=== PATIENT | male | born 1960 | race Caucasian/White ===

== ENCOUNTER 2016-12-19 15:42 | Inpatient (IN) ==
[2016-12-19] MEDS ORDERED: DUONEB (A & A) INH ONE ×2 (16:36→18:34)
[2016-12-19] MEDS ORDERED: SOLU-MEDROL IV ONE (16:37)
--- NOTE | 2016-12-19 16:43 | PROVIDER DOCUMENTATION ---
HPI-General Adult - General Chief Complaint: Cough Stated Complaint: COUGH/CONGESTION Time Seen by Provider: 12/19/16 16:25 Source: patient Allergies/Adverse Reactions: Patient Allergies Allergy/AdvReac Type Severity Reaction Status Date / Time No Known Allergies Allergy Verified 08/23/14 21:20 Home Medications: Home Medication List Medication Instructions Recorded Confirmed Last Taken Type Alprazolam [Xanax] 3 mg PO QAM 03/18/12 08/26/14 08/25/14 07:00 History Sertraline HCl [Zoloft] 2 tab PO QAM 03/18/12 08/26/14 08/25/14 07:00 History Amlodipine Besylate [Norvasc] 5 mg PO BID 03/19/12 08/26/14 08/26/14 04:10 History Metoprolol Succinate 100 mg PO DAILY 03/19/12 08/26/14 08/26/14 04:10 History Ciprofloxacin HCl [Cipro] 500 mg PO BID #20 tablet 08/23/14 08/26/14 08/25/14 20 :00 Rx Metronidazole [Flagyl] 500 mg PO TID #15 tablet 08/23/14 08/26/14 08/25/14 20: 00 Rx Phenazopyridine HCl [Pyridium] 97.5 mg PO TID 08/25/14 08/26/14 08/25/14 20:00 History Albuterol Sulfate [Albuterol 8.5 gm IH Q6H #1 hfa.aer.ad 12/19/16 Unknown Rx Sulfate Hfa] Azithromycin [Zithromax Z-Jamel] 250 mg PO DIRECTED #1 pkg 12/19/16 Unknown Rx Guaifenesin 400 mg PO BID #10 tablet 12/19/16 Unknown Rx Prednisone 40 mg PO DAILY #3 tablet 12/19/16 Unknown Rx - History of Present Illness -Gen Adult Nature of Presenting Problems: Pt comes in from PCP with complaint of cough with dark green sputum and SOB with exertion. He started having diarrhea 3 days ago [place] His grand kids also had diarrhea. He smokes but denies COPD Review of Systems - Adult - REVIEW OF SYSTEMS - ADULT Constitutional: reports: see HPI, chills, fever. denies: fatique, night sweats , weight gain, weight loss Eyes: reports: no symptoms reported. denies: discharge, dry eyes, decreased vision, blurred vision, double vision, redness Ears, Nose, Mouth & Throat: reports: no symptoms reported. denies: ear discharge, ear pain, hearing loss, epistaxis, loose teeth, mouth/dental pain, mouth swelling, hoarseness, throat pain, throat swelling Cardiovascular: reports: no symptoms reported. denies: chest pain, edema, heart murmur, irregular heart rate, palpitations, poor circulation, PND, syncope Respiratory: reports: see HPI, cough, dyspnea on exertion, shortness of breath. denies: excessive sputum production, hemoptysis, pleurisy, wheezing Gastrointestinal: reports: see HPI, diarrhea. denies: abdominal pain, hematemesis, constipation, frequent heartburn, nausea, poor appetite, rectal bleeding, vomiting Genitourinary: reports: no symptoms reported. denies: dysuria, discharge, frequency, flank pain, frequent UTI's, hesitency, incontinence, urinary retention, urgency Musculoskeletal: reports: no symptoms reported. denies: bone pain, back pain, frequent leg cramps, joint pain, joint swelling, muscle aches, muscle weakness, neck pain Integumentary: reports: no symptoms reported. denies: hives, hair loss, mole changes, nail changes, rash, skin sores/ulcer, skin thickening Neurological: reports: no symptoms reported. denies: ataxia, dizziness/vertigo , loss of balance, numbness, paresthesia, seizure, syncope, tremors Psychiatric: reports: no symptoms reported. denies: anxiety, anti-depressant use, alcohol/drug dependence, emotional problems, insomnia, panic attacks, suicidal thoughts Endocrine: reports: no symptoms reported. denies: change in skin pigment, goiter, cold intolerance, increased hunger, increased thirst, polyuria Hematologic/Lymphatic: reports: no symptoms reported. denies: blood clots, low blood count, lymphedema, prolonged bleeding, transfusions Allergic/Immunologic: reports: no symptoms reported. denies: allergic reactions , allergic rhinitis, asthma, eczema, frequent infections, hay fever, positive PPD, urticaria All Other Systems: Reviewed and Negative Past History - Adult - PAST MEDICAL HISTORY-ADULT Review of Records: reports: Old Records Reviewed, Nursing Assessment Review, Medications Reviewed, Social history reviewed & non-contributory. Major Childhood Illnesses: reports: denies history Cardiovascular: reports: HTN Respiratory: reports: sleep apnea Gastrointestinal: reports: denies history Obstetrical/Gynecological: reports: denies history Genitourinary: reports: kidney stones, prostate cancer Musculoskeletal: reports: denies history Neurological: reports: denies history Endocrine/Immune: reports: denies history Other Conditions: reports: denies history - PRIOR SURGERIES/PROCEDURES Surgical/Procedure History: reports: reviewed, not pertinent, other (prostate) - IMMUNIZATION STATUS Childhood Immunizations: See Nurse Assessment Flu Vaccine: See Nurse Assessment - FAMILY HISTORY Family History: reviewed, not pertinent - SOCIAL HISTORY Smoking: cigarettes, less than 1 pack/day Provider spent 3-5 mins advising pt. on dangers of tobacco.: Discussed manners to quit use, and f/u contacts for add'l counseling. Substance Use: none/never Alcohol Use Frequency: never Living Situation: family Physical Exam-General - PHYSICAL EXAM-ADULT Initial Vital Signs Reviewed: Yes - CONSTITUTIONAL General Appearance: appears well, alert, no apparent distress - EYES Eyes: PERRL/EOMI, pink conjunctivae - HEAD, EARS, NOSE, MOUTH & THROAT HENMT: normocephalic/atraumatic - NECK Neck: non-tender, full range of motion, supple - RESPIRATORY Respiratory: chest non-tender, no pleuratic chest pain, no respiratory distress , no accessory muscle use, decreased breath sounds, rhonchi, wheezing - CARDIOVASCULAR Cardiovascular: normal peripheral pulses, regular rate, rhythm, no edema, no gallop, no JVD, no murmur - GASTROINTESTINAL (ABDOMEN) Abdominal Exam: normal bowel sounds, non tender, soft - MUSCULOSKELETAL Back Exam: normal inspection, no CVA tenderness Extremity: normal range of motion, non-tender, normal gait, normal inspection, no pedal edema, no calf tenderness, normal capillary refill - SKIN Integumentary: normal color, normal turgor, warm/dry - NEUROLOGIC Neurologic: professor of communication arts II-XII nml as tested, grossly normal - PSYCHIATRIC Psych/Mental Status: normal mood/affect, normal thought content, normal thought process, oriented x 3 Progress - PLAN OF CARE/RESULTS Progress/Plan/Lab Results: Vital Signs - 8 hr 12/19/16 15:45 Temperature 98.7 F Pulse Rate 92 H Respiratory Rate 18 Blood Pressure 121/72 O2 Sat by Pulse Oximetry 93 L Orders Category Date Time Status CHEST-2 VIEWS [RAD] Stat Exams 12/19/16 16:36 Ordered ABG [RESP] Stat Lab 12/19/16 16:36 Ordered CBC WITH DIFF [HEME] Stat Lab 12/19/16 16:36 Uncollected CMP [COMPREHENSIVE METABOLIC PANEL] [CHEM] Stat Lab 12/19/16 16:36 Uncollected Albuterol 2.5MG/Ipratrop 0.5MG [Duoneb (A & A)] Med 12/19/16 16:36 Once 3 ml INH NOW ONE Methylprednisolone Sod Succ [Solu-Medrol] Med 12/19/16 16:37 Once 125 mg IV NOW ONE Aerosol Treatments Routine Oth 12/19/16 16:36 Ordered Aerosol Treatments Stat Oth 12/19/16 16:36 Ordered Result Diagrams: 12/19/16 17:17 12/19/16 17:17 - XRAY 1 XRAY Study: Chest Impression: See EMR Report XRAY Interpretation: right sided fibrosis (RAD) Departure - Departure Date of Disposition Decision: 12/19/16 Time of Disposition Decision: 18:12 DIAGNOSIS: URI (upper respiratory infection) Qualifiers: URI type: unspecified URI Qualified Code(s): J06.9 - Acute upper respiratory infection, unspecified Disposition: HOME 01 Certified Medical Emergency: Emergent Condition: Good Additional Freetext Instructions: ED Follow Up Instructions: You have been treated by a care provider in the Emergency Department. These instructions are being provided to you so you can have an understanding of how to care for yourself upon discharge. Upon discharge from the Emergency Department, you are responsible for making arrangements for follow-up care by a physician of your choice. Take all prescribed medications as directed. Return to the Emergency Department immediately for any new or worsening symptoms. You may call the Physician Referral phone number at [phone] to obtain a list of Physicians who are taking new patients. Prescriptions: Albuterol Sulfate [Albuterol Sulfate Hfa] 8.5 gm IH Q6H #1 hfa.aer.ad Azithromycin [Zithromax Z-Jamel] 250 mg PO DIRECTED #1 pkg Guaifenesin 400 mg PO BID #10 tablet Prednisone 40 mg PO DAILY #3 tablet Referrals and Follow-Ups: Socrates Canales MD [Primary Care Provider] - - Critical Care Note This patient required my direct & personal management of CC.: No Attestation - Physician/ JACQUELINE Attestation Patient care was provided by Advanced Practice Provider:: Yes Advanced Practice Provider:: Champ Funk Advanced Practice Provider documentation review:: The Mid-level provider documentation, treatment plan and medical decision making was reviewed by the physician who agrees with all treatment and medical decision making by the MLP.
[2016-12-19 16:51] LABS: ALLEN TEST YES; BE 0.7 mmoll (-3.0-3.0); BLOOD TYPE ARTERIAL; DRAW SITE R RADIAL; METHB 1.1 % (0.0-1.5); O2(CT) 23.4 mL/dL (15.0-23.0); PCO2(98.6) 40 mmHg (35-45); PO2(98.6) 66 mmHg (60-100); SAMPLE BLOOD; SAO2 95.6 % (95.0-100.0); THB 18.2 g/dL (11.5-17.4); pH(98.6) 7.41 (7.35-7.45)
[2016-12-19 16:54] LABS: MODALITY CANNULA
--- NOTE | 2016-12-19 17:30 | Diag Imaging Result Doc PS360 ---
EXAM: CHEST-2 VIEWS HISTORY: cough TECHNIQUE: PA and lateral COMMENT: There is no evidence of acute cardiac or pulmonary disease. There is some pleural fibrosis particularly laterally on the right. Compared to 10/31/2016 there is been no significant change. IMPRESSION: Stable chest. Electronically signed by Diego Lipscomb 12/19/2016 5:28 PM
[2016-12-19 17:34] LABS: MANUAL DIFF NEEDED? NO
[2016-12-19 17:39] LABS: BASO% 0.6 % (0.0-0.8); EOS# 0.06 X1000 (0.0-0.7); EOS% 1.3 % (0.0-10.0); HEMATOCRIT 55.2 % (42.0-52.0); HEMOGLOBIN 18.3 g/dL (14.0-18.0); LYMPH# 0.89 X1000 (1.2-3.4); LYMPH% 19.3 % (20.5-51.1); MCH 32.2 PG (27-31); MCHC 33.2 g/dL (33-37); MCV 97.2 FL (81-99); MONO# 0.49 X1000 (0.11-0.59); MONO% 10.6 % (1.7-9.3); MPV 10.5 FL (7.4-10.4); NEUT% 68.2 % (42.2-75.2); PLT 142 X1000 (130-400); RBC 5.68 XMIL (4.7-6.1)
[2016-12-19 17:57] LABS: AGAP 13; ALBUMIN 4.5 g/dL (3.5-5.0); ALKALINE PHOSPHATASE 97 U/L (32-122); BUN 15 mg/dL (8-22); CALCIUM 9.4 mg/dL (8.8-10.2); CHLORIDE 97 mmol/L (98-107); COSMO 276; GOT 24 U/L (10-34); GPT 29 U/L (10-44); POTASSIUM 4.1 mmol/L (3.5-5.1); SODIUM 138 mmol/L (136-145); TCO2 28 mmol/L (25-35); TOTAL BILIRUBIN 0.44 mg/dL (0.20-1.00)
[2016-12-19] MEDS ORDERED: BIDEX PO ONE (18:11)
[2016-12-19] MEDS ORDERED: NS 1,000 ML IV ONE (18:11)
--- NOTE | 2016-12-19 20:15 | Diag Imaging Result Doc PS360 ---
EXAM: CT THORAX W/O CONTRAST HISTORY: quantify fibrosis TECHNIQUE: CT of the chest without contrast with dose reduction (clarity) COMMENT: Compared to the previous study of 07/14/2013 some of the tree-in-bud opacities which were previously present in the left upper and lower lobes as well as in the right lower lobe and anterior inferior right upper lobe have diminished considerably. There is some scarring in the lingula. There is atelectasis or fibrosis in the medial portion of the right upper lobe just above the minor fissure. Some groundglass opacity is seen in the right lower lobe just posterior to the major fissure around image 89. This was not present previously. 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 There is extensive coronary calcification. There are no abnormal fluid collections. The mediastinum has not changed significantly in appearance since the previous study. IMPRESSION: The pulmonary opacities present on 07/14/2013 are largely resolved however there are some new abnormalities as described above which may indicate minimal pneumonitis. Other chronic changes as described above. Electronically signed by Diego Lipscomb 12/19/2016 8:13 PM
--- NOTE | 2016-12-19 21:07 | HISTORY AND PHYSICAL ---
REASON FOR ADMISSION: Nine days' history of worsening shortness of breath and cough. HISTORY OF PRESENT ILLNESS: Mr. Monahan is a 56-year-old man with a past medical history of pulmonary fibrosis, confined to his right lung, coronary artery disease, dyslipidemia, hypertension, kidney stones, who comes in today complaining of about a 9-day history of progressively worsening shortness of breath, which occurred after his trip to the [facility]. He reports that other family members developed upper respiratory illnesses like he did, and most of them have recovered, but he has continued to carry this cough, which is productive of sometimes brownish sputum, but no hemoptysis. He reports that unlike the other family members, he has continued to have progressive worsening shortness of breath, positive PND, but no orthopnea, no chest pain. No lightheadedness. He said his exercise tolerance over the last 3 days has significantly decreased. He however denies any leg swelling. He admits to having some subjective fevers intermittently over the last 3 days. His breathing got to the point where even at rest or very light duty, he became profoundly dyspneic, and it took him a long time to recover each time he did very light work duties. On arrival to the ER, his O2 saturation on room air was in the mid 80s. He was given multiple breathing treatments, and he says subjectively he feels better. His O2 saturations have still been in the 80s. He reports intermittent palpitations when his breathing gets worse over the last 2 days. REVIEW OF SYSTEMS: Only notable for a 2-day history of nonbloody diarrhea, which is resolving, and chronic urinary urgency following his prostatectomy 7 years ago. He denies any dysuria or hematuria anyway. Review of systems otherwise, a 12-system review is negative, except for positive findings noted in the HPI. ALLERGIES: None. MEDICATIONS: 1. Remeron 30 mg daily. 2. Xanax 2 mg daily. 3. Toprol 100 mg daily. 4. Remeron 30 mg as directed. 5. Crestor 10 mg daily. 6. Entresto 24/26 mg daily. 7. Zoloft 200 mg in the morning. PAST MEDICAL HISTORY: See above. PAST SURGICAL HISTORY: He has had right shoulder surgery, total prostatectomy in 2007. FAMILY HISTORY: Notable for heart disease, type 2 diabetes, lymphoma in first-degree relatives. SOCIAL HISTORY: Lives alone. Smokes half a pack a day. No alcohol or illicit drug use. LABORATORY WORK: Notable for white count of 4000, hemoglobin and hematocrit of 18 and 55, platelets 142,000. Chemistry entirely is normal. Blood gas 7.41, pCO2 40, PO2 66 on [address] of the chest: Showed pulmonary opacities that were present in 2013 had resolved, but there is report of new abnormalities, which indicates minimal pneumonitis. They also noted some scarring in the lingula, and some fibrosis in the medial portion of the right upper lobe. His lactate was also normal. PHYSICAL EXAMINATION: VITAL SIGNS: Blood pressure 121/80, heart rate 93, respirations 16, temperature is 97.8 degrees. He was 91% on 2 L. GENERAL: He is a pleasant middle-aged overweight man, who is not in acute distress. He is A and O x3. Normal mood and affect. HEENT: Head is normocephalic, atraumatic. Eyes GRADY, EOMI. He is anicteric and not pale. ENT and oropharynx exam is grossly normal. No signs of cyanosis is noted. No JVD. No bruit. No thyromegaly noted. CHEST: Decreased air entry in both lung chan, with diffuse wheezes. CARDIOVASCULAR: First and second heart sounds heard. No gallops, murmurs, rubs. Rhythm is regular. ABDOMEN: Protuberant, soft, nontender. No mass or organomegaly. Bowel sounds are hyperactive. RECTAL: Deferred at this time. EXTREMITIES: No edema, clubbing, or cyanosis. Pulses distally. Lower extremities are palpable, with good volume and symmetric. NEUROLOGICAL: No focal deficits. SKIN: Intact. No breakdown or lesions. MUSCULAR: Exam is grossly normal. ASSESSMENT: 1. Acute on chronic respiratory failure secondary to chronic obstructive pulmonary disease. 2. Chronic obstructive pulmonary disease exacerbation following a viral illness. 3. Carotid artery disease. 4. Hypertension. 5. Hyperlipidemia. 6. Secondary polycythemia secondary to chronic hypoxia. PLAN: At this time, patient will be started on short-acting nebulizer treatments, with steroids and empiric antibiotics, with diagnosis being probable noninfectious pneumonitis. The patient will resume his home medications, will also benefit from probably being on a long-acting bronchodilator. The patient is qualified for home O2. At this point in time, the patient ill be reassessed in the morning to see if he still qualifies, at which time, I will consult Social Service to assist in getting home O2 for this patient. Smoking cessation was strongly reiterated with the patient, and he plans to quit. Patient's respiratory failure, I believe is chronic in nature, as evidenced by the degree of polycythemia he has, but I think the viral illness tipped him over into acute respiratory distress. cc: Jackie Narayan MD
[2016-12-19] MEDS ORDERED: TYLENOL PO PRN (21:47)
[2016-12-19] MEDS ORDERED: ZOFRAN IV PRN (21:47)
[2016-12-19] MEDS: REMERON PO SCH (23:24)
[2016-12-19] MEDS: LOVENOX SUBQ SCH (23:24)
[2016-12-19] MEDS: ENTRESTO 24 MG-26 MG TABLET PO SCH (23:27)
[2016-12-19] MEDS: DUONEB (A & A) INH SCH (23:38)
[2016-12-19] MEDS: ZITHROMAX PO SCH (23:56)
[2016-12-20 00:22] LABS: URINE CULTURE NEEDED? NO; URINE MICRO REVIEW NEEDED? NO; URINE SOURCE CLEAN CATCH
[2016-12-20 00:28] LABS: BILIRUBIN URINE NEGATIVE (NEGATIVE); BLOOD URINE NEGATIVE (NEGATIVE); COLOR YELLOW; GLUCOSE URINE TRACE mg/dL (NEGATIVE); LEUKOCYTES URINE NEGATIVE (NEGATIVE); NITRITE URINE NEGATIVE (NEGATIVE); PH URINE 5.5; PROTEIN URINE TRACE mg/dL (NEGATIVE); TURBIDITY URINE CLEAR (CLEAR); UR EPITHELIAL CELLS <10 /HPF (<10); URINE BACTERIA NEGATIVE /HPF; URINE RBC <10 /HPF (<10); URINE WBC <10 /HPF (<10); UROBILINOGEN URINE NORMAL (NORMAL)
[2016-12-20] MEDS: DUONEB (A & A) INH SCH ×5 (03:06→23:22)
--- NOTE | 2016-12-20 05:38 | EKG Report ---
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 Rate : 087 BPM Atrial Rate : 087 BPM P-R Int : 188 ms QRS Dur : 102 ms QT Int : 374 ms P-R-T Axes : 065 -67 115 degrees QTc Int : 450 ms Normal sinus rhythm. Possible Left atrial enlargement Left axis deviation Incomplete right bundle branch block Possible Anteroseptal infarct (cited on or before 10-MAY-2014) T wave abnormality, consider lateral ischemia Abnormal ECG When compared with ECG of 10-MAY-2014 13:36, premature supraventricular complexes. are no longer present Questionable change in initial forces of Septal leads T wave inversion more evident in Lateral leads Unconfirmed Result
[2016-12-20 05:56] LABS: MANUAL DIFF NEEDED? NO
[2016-12-20 06:05] LABS: BASO% 0.2 % (0.0-0.8); EOS# 0.01 X1000 (0.0-0.7); EOS% 0.2 % (0.0-10.0); HEMATOCRIT 52.3 % (42.0-52.0); HEMOGLOBIN 17.5 g/dL (14.0-18.0); LYMPH# 0.64 X1000 (1.2-3.4); MCH 32.3 PG (27-31); MCHC 33.5 g/dL (33-37); MCV 96.7 FL (81-99); MONO# 0.27 X1000 (0.11-0.59); MONO% 5.1 % (1.7-9.3); MPV 10.5 FL (7.4-10.4); NEUT% 82.5 % (42.2-75.2); PLT 135 X1000 (130-400); RBC 5.41 XMIL (4.7-6.1)
[2016-12-20] MEDS: SOLU-MEDROL IV SCH ×2 (06:41→20:13)
[2016-12-20 06:46] LABS: AGAP 15; BUN 16 mg/dL (8-22); CALCIUM 9.3 mg/dL (8.8-10.2); CHLORIDE 102 mmol/L (98-107); COSMO 281; POTASSIUM 4.3 mmol/L (3.5-5.1); SODIUM 139 mmol/L (136-145); TCO2 22 mmol/L (25-35)
[2016-12-20] MEDS: XANAX XR PO SCH (10:23)
[2016-12-20] MEDS: ENTRESTO 24 MG-26 MG TABLET PO SCH ×2 (10:24→22:25)
[2016-12-20] MEDS: ZOLOFT PO SCH (10:24)
[2016-12-20] MEDS: CRESTOR PO SCH (10:24)
[2016-12-20] MEDS: TOPROL XL PO SCH (10:24)
--- NOTE | 2016-12-20 12:01 | Diag Imaging Result Doc PS360 ---
EXAM: CHEST-2 VIEWS INDICATION: ?PNA TECHNIQUE: 2 views COMPARISON: 12/19/2016 FINDINGS: There are no new consolidations. Mild pleural scarring on the right is again noted. The cardiac silhouette is stable. IMPRESSION: Stable chest. Electronically signed by Jaime Solitario 12/20/2016 11:59 AM
--- NOTE | 2016-12-20 14:42 | PROGRESS NOTE ---
DATE: 12/20/2016 SUBJECTIVE: Patient reports feeling less short of breath. No chest pain reported. No fever or chills. OBJECTIVE: Vital Signs: Temperature 97.5 degrees, heart rate 65, respiratory rate 20, blood pressure 137/78, O2 saturation 93% on 2 L nasal cannula. GENERAL EXAMINATION: This is a 56-year-old male lying in bed, in no acute distress.HEENT: Head is normocephalic, atraumatic. Anicteric sclerae and pale conjunctivae. Mucous membranes moist. Neck: Supple. No JVD noted. No carotid bruits. No lymphadenopathy. No thyromegaly. Cardiovascular Exam: S1, S2 heard. No murmurs, gallops, or rubs. Regular rate and rhythm. Respiratory: Clear bilaterally to auscultation. Very few wheezing in both bases. Patient is not using any accessory muscles or having work of breathing. Abdomen: Soft. Nontender to palpation. Bowel sounds present. No organomegaly. Extremities: No clubbing, cyanosis, or edema. Peripheral pulses present in both legs. Neurological: Patient is alert and oriented x3. Moves 4 extremities. Cranial nerves 2 through 12 grossly normal. LABORATORY DATA: Reviewed. ASSESSMENT: 1. Acute on chronic respiratory failure secondary to chronic obstructive pulmonary disease exacerbation. 2. Hypertension. 3. Hyperlipidemia. 4. Polycythemia secondary to chronic hypoxia. PLAN: Patient is clinically improving. Currently he is receiving methylprednisolone 40 mg IV q.12 hours along with azithromycin and DuoNeb every 4 hours scheduled as well. At this time, we are going to continue with the same management. Now requiring 2 L of oxygen by nasal cannula. We are going to titrate that down. If tomorrow he is feeling fine and not requiring any oxygen, he may be discharged. cc: Richardson Mari MD
[2016-12-20] MEDS: ZITHROMAX PO SCH (22:25)
[2016-12-20] MEDS: REMERON PO SCH (22:25)
[2016-12-20] MEDS: LOVENOX SUBQ SCH (22:26)
[2016-12-21] MEDS: DUONEB (A & A) INH SCH ×3 (03:43→11:21)
[2016-12-21] MEDS: SOLU-MEDROL IV SCH (07:01)
[2016-12-21] MEDS: TOPROL XL PO SCH (08:24)
[2016-12-21] MEDS: ENTRESTO 24 MG-26 MG TABLET PO SCH (08:24)
[2016-12-21] MEDS: CRESTOR PO SCH (08:24)
[2016-12-21] MEDS: ZOLOFT PO SCH (08:24)
[2016-12-21] MEDS: XANAX XR PO SCH (09:56)
--- NOTE | 2016-12-21 12:45 | DISCHARGE SUMMARY ---
ADMISSION DATE: 12/19/2016 DISCHARGE DATE: 12/21/2016 PERTINENT PROCEDURES: Chest CT showed pulmonary opacities present on 2012 are largely resolved; however, there are some new abnormalities described which may indicate minimal pneumonitis, other chronic changes. Follow-up chest x-ray was stable. DISCHARGE DIAGNOSES: 1. Acute on chronic respiratory failure secondary to chronic obstructive pulmonary disease exacerbation improved. 2. Hypertension continue home medicines. 3. Hyperlipidemia continue statin. 4. Polycythemia secondary to chronic hypoxia. 5. COPD exacerbation, improved HOSPITAL COURSE: Mr. Monahan is a 56-year-old male with a past medical history of pulmonary fibrosis confined to his right lung, coronary artery disease, dyslipidemia, hypertension, kidney stones, came to the ED complaining about a 9-day history of progressive worsening shortness of breath which occurred after a trip to the [facility]. He reported other family members developed an upper respiratory illness like he did, most of them have recovered. He continued to carry a cough which was productive at times of brownish sputum, as well as having progressive worsening shortness of breath, positive PND, and his exercise tolerance over the last 3 days prior to his admission has significantly decreased. He did report some subjective fevers intermittently again over the last 3 days prior to his admission. He felt like with any light duty he would become profoundly dyspneic and it would take him a long time to recover each time. On arrival to the ED, his O2 saturations are in the mid 80s. He was given multiple breathing treatments. He subjectively felt better. His O2 saturations were still in the 80s. The patient was admitted for acute on chronic respiratory failure secondary to COPD, as well as COPD exacerbation following a viral illness. He was started on short-acting nebulizer treatments with steroids and empiric antibiotics and diagnosed with a probable noninfectious pneumonitis. He was resumed on his home medications as well as supplemental O2. Clinically the patient has improved. We are placing a consult for possible home O2, we are still pending those results prior to his discharge. VITAL SIGNS: Temperature is 97.4 degrees, heart rate 65, respirations 19, blood pressure 151/70, O2 is 97% on 2 L nasal cannula. DISCHARGE DIET: Healthy heart. DISCHARGE MEDICATIONS: 1. Albuterol sulfate 8.5 g inhaled q.6 hours. 2. ER 30 mg p.o. daily. 3. Z-Jamel as directed. 4. 400 mg p.o. b.i.d. 5. Metoprolol 100 mg p.o. daily. 6. Remeron 30 mg p.o. as directed. 7. Prednisone 40 mg daily for 3 days. 8. Crestor 10 mg p.o. daily. 9. Entresto 26 mg 1 each p.o. b.i.d. 10. Zoloft 2 tabs p.o. q.a.m. FOLLOW-UP: The patient is being discharged home with self care. He is still being evaluated for home O2 qualifications- patient can return to the ED for any worsening of symptoms. DISCHARGE TIME: 30 minutes. Dictated by TATA Lopez for Richardson Mari MD cc: Richardson Mari MD MTDD
[2016-12-21 13:33] VITALS: BP 137/65
== END 2016-12-21 14:25 | disposition home or self-care (01) ==
LOC: ED 15:42 → 4N 21:21 → SUATTDRO 21:21
PROVIDERS: ATTEND Internal Medicine